=== PATIENT | female | born 1990 | race Hispanic/Latino ===

== ENCOUNTER 2017-08-21 10:25 | Emergency (ER) | payer OTHER ==
[2017-08-21 10:29] VITALS: BMI 29.9
[2017-08-21 10:30] VITALS: TEMP 98
[2017-08-21] MEDS ORDERED: Albuterol-Ipratrop 3 mg / 0.5 (3 ml) UD IH STA (10:38)
[2017-08-21] MEDS ORDERED: DiphenhydrAMINE 50 mg/ml Inj IVP STA (10:38)
[2017-08-21] MEDS ORDERED: Sodium Chloride 0.9% 1,000 ML IV STA (10:38)
--- NOTE | 2017-08-21 10:48 | ED PDOC ---
HPI: Allergic Reaction Time Seen by Provider: 08/21/17 10:33 Chief Complaint (Nursing): Allergic Reaction Chief Complaint (Provider): Allergic Reaction History Per: Patient History/Exam Limitations: no limitations Onset/Duration Of Symptoms: Hrs (X 1) Current Symptoms Are (Timing): Still Present Possible Cause: Unknown Associated Symptoms: Swelling (facial), Itching Additional Complaint(s): Pat is a 27 year old female who was brought by EMS after patient experienced facial swelling and itchiness 1 hour prior to arrival. Unknown allergen. Denies history of any allergens. Mild difficulty breathing through her nose, but denies tightness in throat or shortness of breath. History of liposuction in July. Currently on prednisone and percocet. No previous allergies to either medications. PMD: Provider TBD Past Medical History Reviewed: Historical Data, Nursing Documentation, Vital Signs Vital Signs: Last Vital Signs Temp 98 F 08/21/17 10:29 Pulse 91 H 08/21/17 10:29 Resp 16 08/21/17 10:29 BP 124/85 08/21/17 10:29 Pulse Ox 97 08/21/17 10:29 - Medical History PMH: No Chronic Diseases - Surgical History Surgical History: Tonsillectomy Other surgeries: liposuction - Family History Family History: States: Unknown Family Hx - Immunization History Hx Tetanus Toxoid Vaccination: No Hx Influenza Vaccination: No Hx Pneumococcal Vaccination: No - Home Medications Home Medications: Ambulatory Orders Medication Instructions Recorded Albuterol HFA [Ventolin HFA 90 2 puff IH Q4H #1 puff 08/21/17 mcg/actuation (8 g)] Cetirizine HCl [Zyrtec] 10 mg PO DAILY #10 capsule 08/21/17 Famotidine [Pepcid] 20 mg PO Q12 #20 tab 08/21/17 Prednisone 50 mg PO DAILY #5 tab 08/21/17 - Allergies Allergies/Adverse Reactions: Allergies Allergy/AdvReac Type Severity Reaction Status Date / Time No Known Allergies Allergy Verified 08/21/17 10:38 Review of Systems ROS Statement: Except As Marked, All Systems Reviewed And Found Negative ENT: Positive for: Other (mild difficulty breathing through her nose, but denies tightness in throat) Respiratory: Negative for: Shortness of Breath Skin: Positive for: Other (facial swelling and itchiness) Physical Exam - Reviewed Nursing Documentation Reviewed: Yes Vital Signs Reviewed: Yes - Physical Exam Skin: Negative for: Normal Color ((+): face- periorbital swelling and erythema) ENT: Negative for: Tonsillar Swelling Cardiovascular/Chest: Positive for: Regular Rate, Rhythm Respiratory: Positive for: Normal Breath Sounds (Lungs clear). Negative for: Stridor, Wheezing, Respiratory Distress Gastrointestinal/Abdominal: Positive for: Normal Exam, Soft. Negative for: Tenderness Extremity: Negative for: Swelling, Other (rash) Neurologic/Psych: Positive for: Alert, Oriented (x 3). Negative for: Motor/ Sensory Deficits - ECG O2 Sat by Pulse Oximetry: 97 (RA) Pulse Ox Interpretation: Normal - Progress Re-evaluation Time: 12:35 Condition: Improved (Swelling [id number] no resp distress) Disposition - Clinical Impression Clinical Impression: Allergic reaction - Patient ED Disposition Is Patient to be Admitted: No Counseled Patient/Family Regarding: Diagnosis, Need For Followup, Rx Given - Disposition Referrals: [facility] [Outside] Disposition: Routine/Home Disposition Time: 12:35 Condition: FAIR Prescriptions: Albuterol HFA [Ventolin HFA 90 mcg/actuation (8 g)] 2 puff IH Q4H #1 puff Cetirizine HCl [Zyrtec] 10 mg PO DAILY #10 capsule Famotidine [Pepcid] 20 mg PO Q12 #20 tab Prednisone 50 mg PO DAILY #5 tab Instructions: Allergy Testing, Anaphylaxis, Food Allergy, Drug Allergy, Hives Forms: [email or web address] ([place]) Medical Decision Making Medical Decision Making: Time: 10:38 Plan: - Benadryl 50 mg IVP STAT - Duoneb 3 mg/0.5 mg (3 ml) UD - Sodium Chloride 0.9% 1,000 ml IV 100 mls/hr - Pepcid 20 mg IVP STAT - SOLU-Medrol 125 mg IVP - Pea Flow PrePost Treatment Scribe Attestation: Documented by Joshua Coyne, acting as a scribe for Dank Flores MD. Provider Scribe Attestation: All medical record entries made by the Scribe were at my direction and personally dictated by me. I have reviewed the chart and agree that the record accurately reflects my personal performance of the history, physical exam, medical decision making, and the department course for this patient. I have also personally directed, reviewed, and agree with the discharge instructions and disposition.
[2017-08-21 13:03] VITALS: BP 117/68; PULSE 78; RESP 18; O2SAT 98
== END 2017-08-21 13:03 | disposition home or self-care (01) ==
LOC: H.ER 10:25
DX: L29.9 Pruritus, unspecified (principal); T78.40XA Allergy, unspecified, initial encounter
CPT/HCPCS: 81025; 96374; 96375; 99283; J1200; J2930; J7040